=== PATIENT | female | born 1970 | race Caucasian/White ===

== ENCOUNTER 2016-11-07 17:00 | Emergency (ER) | payer MEDICAID ==
[~2016-11-07] VITALS: Ht 160 cm; Wt 113.5 kg
[~2016-11-07 17:00] MED LIST: ANTIDEPRESSANT; BACTRIM DS TAB1 EAC2 PO; CALCIUM600 M1 PO; CETIRIZINE HCL10 M1 PO; DICLOFENAC SODI75 M2 PO; DOXEPIN HCL10 M1 PO; DOXYCYCLINE HY100 M3 PO; ELIMITE60 G2 TP; HYDROCODON-ACE1 EA17 PO; INVEGA6 MG PO; KETOROLAC TROME10 MG PO; KLONOPIN0.5 M1 PO; LITHIUM CARBON300 M1 PO; NAPROSYN500 M1 PO; NEURONTIN300 M1 PO; NEURONTIN600 M1 PO; PERCOCET 5-3251 EACH PO; PREDNISONE20 M1 PO; PRILOSEC OTC20 M1 PO; PROPRANOLOL HCL40 M2 PO; PROVENTIL HFA6.7 G1 IH; SYNTHROID75 MC1 PO; TRAZODONE HCL100 M1 PO; TRAZODONE HCL50 M1 PO; TRILEPTAL600 M2 PO
[2016-11-07] MEDS ORDERED: LITHOBID300 M1 PO (17:14)
[2016-11-07] MEDS ORDERED: TRAMADOL HCL50 M2 PO (17:16)
[2016-11-07] MEDS ORDERED: BUSPIRONE HCL10 M2 PO (17:16)
[2016-11-07] MEDS ORDERED: HYDROXYZINE HCL25 M1 PO (17:16)
[2016-11-07 18:16] LABS: BASO % 0.5 % (0-2); BASO ABSOLUTE COUNT 0.1 tho/cmm (0.0-0.2); EOS % 9.5 % (0-7); EOSINOPHIL ABSOLUTE COUNT 0.9 tho/cmm (0.0-0.7); HCT-HEMATOCRIT 40.3 % (34.0-49.0); HGB-HEMOGLOBIN 13.1 gm/dl (12.0-15.5); IMMATURE GRANULOCYTES ABSOLUTE 0.01 tho/cmm (0-0.03); IMMATURE GRANULOCYTES PERCENT 0.1 % (0-0.3); LYMPH % 21.4 % (20-45); LYMPH ABSOLUTE COUNT 2.1 tho/cmm (0.8-4.5); MCH (MEAN CORPUSCULAR HGB) 31.6 pg (28.0-32.0); MCHC MEAN CORPUSCULAR HGB CONC 32.5 % (32.0-36.0); MCV (MEAN CELL VOLUME) 97.3 fl (82.0-96.0); MEAN PLATELET VOLUME 10.9 cmc (9.4-12.4); MONO % 8.9 % (0-12); MONOCYTE ABSOLUTE COUNT 0.9 tho/cmm (0.0-1.2); NEUTROPHIL ABSOLUTE COUNT 5.8 tho/cmm (1.6-8.0); NEUTROPHIL-AUTOMATED 5.8 tho/cmm (1.6-8.0); NEUTROPHILS % 59.6 % (40-80); PLATELET COUNT 308 tho/cmm (150-450); RED BLOOD COUNT 4.14 mil/cmm (4.00-5.20); RED CELL DISTRIBUTION WIDTH 11.9 % (12.4-16.4); WHITE BLOOD COUNT 9.8 tho/cmm (4.0-10.0)
[2016-11-07 18:33] LABS: ESR-ERYTHROCYTE SED RATE 26 mm/hr (0-20)
[2016-11-07 18:37] LABS: ALB/GLOB RATIO 0.8 (0.8-2.0); ALBUMIN 3.3 g/dl (3.5-5.0); ALKALINE PHOSPHATASE 92 U/L (33-138); ALT/SGPT 18 U/L (12-78); ANION GAP 9 mmol/L (0-20); AST/SGOT 16 U/L (10-40); BILIRUBIN,TOTAL 0.2 mg/dl (0-1.5); BLOOD UREA NITROGEN 9 mg/dl (6-24); CALCIUM 8.7 mg/dl (8.5-10.5); CARBON DIOXIDE-VENOUS 28 mmol/L (22-32); CHLORIDE 110 mmol/l (96-110); CREATINE PHOSPHOKINASE (CPK) 45 U/L (21-215); CREATININE 1.13 mg/dl (0.50-1.10); GLUCOSE 107 mg/dL (70-110); SODIUM 143 mmol/L (135-145); eGFR VALUE FOR BLACK 67 mL/Min
[2016-11-07 18:38] LABS: CKMB <0.5 ng/ml (<3.6)
[2016-11-07 19:00] LABS: PROTHROMBIN TIME 11.6 SECONDS (9.0-13.6)
[2016-11-07] MEDS ORDERED: NORCO 5-325 TA1 EACH PO (19:56)
== END 2016-11-07 20:20 | disposition left against medical advice (07) ==
LOC: EDMED 17:00
PROVIDERS: Emergency Medicine
DX: M25.552 Pain in left hip (principal); M25.551 Pain in right hip; M62.81 Muscle weakness (generalized); E31.9 Polyglandular dysfunction, unspecified; F41.9 Anxiety disorder, unspecified; F17.210 Nicotine dependence, cigarettes, uncomplicated; Z88.1 Allergy status to other antibiotic agents; Z79.899 Other long term (current) drug therapy
CPT/HCPCS: J2175